=== PATIENT | female | born 1995 | race Caucasian/White ===

== ENCOUNTER 2019-01-22 12:48 | Emergency (ER) | payer MEDICAID ==
[~2019-01-22] VITALS: Ht 167.6 cm; Wt 100.0 kg
[2019-01-22 13:06] VITALS: BP 129/71; PULSE 77; RESP 16; Ht 167.6 cm; Wt 100.0 kg
--- NOTE | 2019-01-22 13:47 | ERD ---
ER Documentation Chief Complaint Chief Complaint SENT BY OB FOR BREAST ULTRASOUND, RIGHT UNDERARM PAIN WITH LUMP HPI 23-year-old female, presents to the emergency department, complaining of 3 weeks with progressive area of tenderness, erythema and induration in the right axilla. Currently the patient is breast-feeding, she reports a history of a left axillary abscess that was managed with antibiotics 3 months ago. She denies fever, no chills, no rashes, no cough, no shortness of breath or abdominal pain. ROS All systems reviewed and are negative except as per history of present illness. Medications Home Meds Active Scripts Ibuprofen* (Motrin*) 400 Mg Tab, 400 MG PO Q6H PRN for PAIN AND OR ELEVATED TEMP, #20 TAB Prov:JENNIFFER CLARK MD 01/22/19 Sulfamethoxazole/Trimethoprim* (Bactrim Ds* Tablet) 1 Each Tablet, 1 TAB PO BID, #14 TAB Prov:JENNIFFER CLARK MD 01/22/19 Cephalexin* (Cephalexin*) 500 Mg Capsule, 500 MG PO Q8, #21 CAP Prov:JENNIFFER CLARK MD 01/22/19 PMhx/Soc Medical and Surgical Hx: pt denies Medical Hx, pt denies Surgical Hx Hx Alcohol Use: No Hx Substance Use: No Hx Tobacco Use: No Smoking Status: Never smoker FmHx Family History: diabetes; No coronary disease Physical Exam Vitals Vital Signs Date Temp Pulse Resp B/P (MAP) Pulse Ox O2 O2 Flow FiO2 Time Delivery Rate 01/22/19 99.0 77 16 129/71 97 13:06 (90) Physical Exam Patient alert, oriented, vital signs stable. HEAD: Normocephalic, atraumatic. EYES: PERRLA, EOMI, Sclera and conjunctiva appear normal. NOSE: Clear and patent nostrils. EARS: Canals clear, tympanic membranes WNL. MOUTH: normal lips and tongue, no oral lesions. THROAT: Normal oropharynx, no tonsillar exudates. NECK: Supple, No lymphadenopathy. Full ROM without pain or tenderness. HEART: RRR, no rubs, murmurs, clicks or gallops. LUNGS: Clear to auscultation. ABDOMEN: Soft, non-tender without masses or hepatosplenomegaly. EXTREMITIES: No edema bilaterally. BACK: Full ROM, no deformity, normal back exam NEURO: Cranial nerves grossly intact, no motor or sensory deficit SKIN: Right axilla: 3 x 3 cm area of erythema warm to palpation, indurated but no fluctuance. Procedures/MDM Vital signs stable, differential diagnosis include but not limited to: Upper versus lower respiratory infection, bacterial/viral/fungal etiology. Asthma, pneumonitis, allergies, less likely meningitis. Low suspicion for acute systemic infection. Physical examination and clinical presentation consistent most likely with sinusitis. During the ED course the patient remained stable, no new complaints. Treatment options and clinical impression discussed with the patient who agrees with management. The patient is stable to be treated outpatient and will be discharged home with a Rx for antibiotics and anti-inflammatories. some side effects of prescribed medications (headache, rash, nausea, vomiting, diarrhea, hypertension, interactions with other medications) were reviewed. The patient was instructed to follow up with the primary care provider in the next 48h. If symptoms persist, worsen or new symptoms develop, then patient should return to the ED immediately. Disclaimer: Inadvertent spelling and grammatical errors are likely due to EHR/dictation software use and do not reflect on the overall quality of patient care. Also, please note that the electronic time recorded on this note does not necessarily reflect the actual time of the patient encounter. Departure Diagnosis: Primary Impression: Cellulitis of right axilla Condition: Stable Additional Instructions: Thank you very much for allowing us to participate in your care. Your health and safety is our top priority at [facility]. The evaluation in the emergency department has been done to rule out an acute emergency. Chronic, [id number] conditions may have not been evaluated; therefore, you need to follow up with a primary care provider in the next 48h. If symptoms persist, worsen or new symptoms develop, then patient should return to the ED immediately. Call your primary care doctor TOMORROW for an appointment during the next 2-4 days and bring all the information provided. Have prescriptions filled and follow precisely the directions on the label. If the symptoms get worse and your provider is unavailable, return to the Emergency Department immediately. JENNIFFER CLARK MD Jan 22, 2019 13:47
[2019-01-22] MEDS ORDERED: IBUP-1561 PO (15:16)
[2019-01-22] MEDS ORDERED: SULF1TAB31 PO (15:16)
[2019-01-22] MEDS ORDERED: CEPH500C PO (15:16)
== END 2019-01-22 16:13 | disposition home or self-care (01) ==
LOC: FTE 12:48
DX: L03.111 Cellulitis of right axilla (principal)
CPT/HCPCS: 99283